=== PATIENT | female | born 1990 | race American Indian/Alaskan Native ===

== ENCOUNTER 2021-02-27 07:43 | Emergency (ER) | payer SELFPAY ==
[2021-02-27 07:59] VITALS: BP 122/77
--- NOTE | 2021-02-27 08:11 | Emergency Department Report ---
Minor Respiratory - HPI Chief Complaint: Upper Respiratory Infection Stated Complaint: Itching, SOB Time Seen by Provider: 02/27/21 07:57 Duration: 3 Days Pain Location: Nose Severity: mild Minor Respiratory: No Rhinorrhea, No Sore Throat, No Able to Tolerate Fluids, No Ear Pain, No Cough, No Sick Contacts, No Hemoptysis, No Chest Pain, No Shortness of Breath, No Fever Other History: 31 yr old female presents to ED with complaints of difficulty breathing through her nose. Patient states she has been having lots of nasal congestion. She denies any rhinorrhea, cough, fever or chills. ED Review of Systems ROS: Stated complaint: Itching, SOB Other details as noted in HPI Comment: All other systems reviewed and negative Constitutional: denies: chills, fever Eyes: denies: eye discharge, vision change ENT: congestion. denies: ear pain, throat pain, dental pain, hearing loss, epistaxis Respiratory: denies: cough, shortness of breath, SOB with exertion, SOB at rest, stridor, wheezing Cardiovascular: denies: chest pain, palpitations, dyspnea on exertion, orthopnea, edema, syncope, paroxysmal nocturnal dyspnea Gastrointestinal: denies: abdominal pain, nausea, diarrhea, constipation, hematemesis, melena, hematochezia Genitourinary: denies: urgency, dysuria, discharge, abnormal menses, dyspareunia Musculoskeletal: denies: back pain, joint swelling, arthralgia, myalgia Skin: denies: rash, lesions, change in color, change in hair/nails, pruritus Neurological: denies: headache, weakness, paresthesias ED Past Medical Hx - Medications Home Medications: Home Medications Medication Instructions Recorded Confirmed Last Taken Type Fluticasone [Flonase] 2 spray NS QDAY #1 bottle 02/27/21 Unknown Rx Loratadine [Claritin] 10 mg PO DAILY #30 tablet 02/27/21 Unknown Rx Minor Respiratory Exam - Exam General: Vital signs noted. No distress. Alert and acting appropriately. HEENT: Yes Moist Mucous Membranes, Yes Rhinorrhea, No Pharyngeal Erythema, No Pharyngeal Exudates, No Conjuctival Injection, No Frontal Tenderness, No Maxillary Tenderness Ear: Both TM Bulge (With moderate cloudy effusion behind both TM ), Neither TM Erythema, Neither EAC Pain Neck: Yes Supple, No Adenopathy Lungs: No Good Air Exchange, No Wheezes, No Ronchi, No Stridor, No Cough, No Labored Respirations, No Retractions, No Use of Accessory Muscles, No Other Abnormal Lung Sounds Heart: Yes Regular, No Murmur Abdomen: No Tenderness, No Peritoneal Signs Skin: No Rash, No Edema Neurologic: Alert and oriented, no deficits. Musculoskeletal: Unremarkable. ED Course Vital Signs 02/27/21 07:54 Temperature 98.1 F Pulse Rate 79 Respiratory 16 Rate Blood Pressure 122/77 [Right] O2 Sat by Pulse 100 Oximetry Critical care attestation.: If time is entered above; I have spent that time in minutes in the direct care of this critically ill patient, excluding procedure time. ED Disposition Clinical Impression: Nasal sinus congestion Disposition: HOME / SELF CARE / HOMELESS Is pt being admited?: No Does the pt Need Aspirin: No Condition: Stable Instructions: Sinusitis, Adult, [id number] Additional Instructions: I recommend that you use the flonase as prescribed and take the claritin daily as prescribed. Try not to keep your room to hot and you can use a coolmist humidifier in your room to help. I do recommend following up with ENT if symptoms persist. Follow-up with your primary care doctor, if you do not have 1 will be provided to you on your discharge instructions. Return to the ER if your symptoms changes or worsens in any way. Prescriptions: Loratadine [Claritin] 10 mg PO DAILY #30 tablet Fluticasone [Flonase] 2 spray NS QDAY #1 bottle Referrals: [facility] [Provider Group] - 3-5 Days [facility] [Provider Group] - 3-5 Days Time of Disposition: 08:11
== END 2021-02-27 08:50 | disposition home or self-care (01) ==
LOC: ED 07:43
DX: R09.81 Nasal congestion (principal)
CPT/HCPCS: 99282